=== PATIENT | female | born 1995 | race Caucasian/White ===

== ENCOUNTER 2017-12-21 05:23 | Inpatient (IN) | payer OTHER ==
[2017-12-21] MEDS ORDERED: CEFAZOLIN 2 GM/50 ML (PMX) 50 ML IVPB (05:30)
[2017-12-21] MEDS ORDERED: MISOPROSTOL 200 MCG TAB PR ×2 (05:30→09:00)
[2017-12-21] MEDS ORDERED: CARBOPROST 250 MCG INJ IM ×2 (05:30→09:00)
[2017-12-21] MEDS ORDERED: OXYTOCIN 30 UNITS/LR 500 ML IV ×2 (05:30→09:00)
[2017-12-21] MEDS ORDERED: METHYLERGONOVINE 0.2 MG INJ IM ×2 (05:30→09:00)
[2017-12-21 06:26] LABS: ADD MAN DIFF? NO
[2017-12-21] MEDS: LACTATED RINGER'S 1,000 ML IV (06:26)
[2017-12-21 06:36] LABS: BASOPHILS % 0.3 % (0.0-2.0); EOSINOPHILS # 0.1 10^3/ul (0.0-0.5); EOSINOPHILS % 1.2 % (0.0-7.0); HEMATOCRIT 40.3 % (37.0-47.0); HEMOGLOBIN 13.9 g/dl (12.0-16.0); LYMPHOCYTES # 1.9 10^3/ul (0.8-2.9); LYMPHOCYTES % 27.4 % (18.0-55.0); MEAN CORPUSCULAR HEMOGLOBIN 30.8 pg (29.0-33.0); MEAN CORPUSCULAR HGB CONC 34.5 g/dl (32.0-37.0); MEAN CORPUSCULAR VOLUME 89.2 fl (72.0-104.0); MEAN PLATELET VOLUME 12.3 fl (7.4-10.4); MONOCYTE # 0.6 10^3/ul (0.3-0.9); MONOCYTES % 8.2 % (0.0-13.0); NEUTROPHIL # 4.3 10^3/ul (1.6-7.5); NEUTROPHILS % 62.3 % (30.0-74.0); PLATELET COUNT 137 10^3/UL (140-415); RED BLOOD COUNT 4.52 10^6/ul (4.20-5.40); RED CELL DISTRIBUTION WIDTH 13.1 % (11.5-14.5)
[2017-12-21 06:36] LABS: WHITE BLOOD COUNT 6.8 10^3/ul (4.8-10.8)
[2017-12-21 06:54] LABS: INR 0.93; PARTIAL THROMBOPLASTIN TIME 26.4 Sec (23.0-35.0); PROTIME 12.5 Sec (11.9-14.9)
[2017-12-21] MEDS ORDERED: FENTAnyl 50 MCG/ML VIAL (07:25)
[2017-12-21] MEDS ORDERED: morphine SULFATE/PF (10 MG/10 ML) INJ (07:25)
[2017-12-21 07:26] LABS: HEPATITIS B SURFACE ANTIGEN NEGATIVE (NEGATIVE)
[2017-12-21] MEDS ORDERED: DEXAMETHASONE 4 MG/ML 1 ML INJ (07:26)
[2017-12-21] MEDS ORDERED: ONDANSETRON 4 MG INJ (07:26)
[2017-12-21] MEDS ORDERED: PHENYLephrine (100 MCG/ML) 5ML SYG (07:31)
[2017-12-21] MEDS ORDERED: KETOROLAC 30 MG INJ IV (08:30)
[2017-12-21] MEDS ORDERED: HYDROmorphONE 0.5 MG/0.5 ML SYG IV ×4 (08:30→12:00)
[2017-12-21] MEDS ORDERED: DIPHENHYDRAMINE 50 MG INJ IV (08:30)
[2017-12-21] MEDS ORDERED: NALOXONE (0.4 MG/ML) INJ IV (08:30)
[2017-12-21] MEDS ORDERED: ZOLPIDEM 5 MG TAB PO (08:30)
[2017-12-21] MEDS: SENNA/DOCUSATE NA (8.6MG/50MG) TAB PO ×2 (09:00→21:00)
[2017-12-21] MEDS: OXYTOCIN 30 UNITS/LR 500 ML IV ×2 (09:06→13:35)
[2017-12-21] MEDS: ONDANSETRON 4 MG INJ IV (10:16)
[2017-12-21] MEDS: IBUPROFEN 600 MG TAB PO ×2 (12:00→18:00)
[2017-12-21] MEDS: DIPHENHYDRAMINE 50 MG INJ IM ×2 (12:34→23:49)
[2017-12-21] MEDS: CEFAZOLIN 2 GM/50 ML (PMX) 50 ML IVPB ×3 (16:20→17:00)
[2017-12-21 22:39] LABS: RAPID PLASMA REAGIN NONREACTIVE (NR)
[2017-12-22] MEDS: CEFAZOLIN 2 GM/50 ML (PMX) 50 ML IVPB (00:59)
[2017-12-22] MEDS: LACTATED RINGER'S 1,000 ML IV ×3 (01:00→17:00)
[2017-12-22] MEDS: IBUPROFEN 600 MG TAB PO ×4 (06:00→18:12)
[2017-12-22] MEDS: KETOROLAC 30 MG INJ IV (06:50)
[2017-12-22 07:41] LABS: ADD MAN DIFF? NO
[2017-12-22 07:46] LABS: BASOPHILS % 0.3 % (0.0-2.0); EOSINOPHILS % 0.3 % (0.0-7.0); HEMATOCRIT 33.9 % (37.0-47.0); HEMOGLOBIN 11.8 g/dl (12.0-16.0); LYMPHOCYTES # 1.7 10^3/ul (0.8-2.9); LYMPHOCYTES % 17.6 % (18.0-55.0); MEAN CORPUSCULAR HEMOGLOBIN 31.1 pg (29.0-33.0); MEAN CORPUSCULAR HGB CONC 34.8 g/dl (32.0-37.0); MEAN CORPUSCULAR VOLUME 89.4 fl (72.0-104.0); MEAN PLATELET VOLUME 11.8 fl (7.4-10.4); MONOCYTE # 0.7 10^3/ul (0.3-0.9); MONOCYTES % 7.6 % (0.0-13.0); NEUTROPHIL # 6.9 10^3/ul (1.6-7.5); NEUTROPHILS % 73.7 % (30.0-74.0); PLATELET COUNT 121 10^3/UL (140-415); RED BLOOD COUNT 3.79 10^6/ul (4.20-5.40)
[2017-12-22 07:46] LABS: WHITE BLOOD COUNT 9.4 10^3/ul (4.8-10.8)
[2017-12-22 07:50] LABS: POSITIVE DIFF @See below
[2017-12-22] MEDS: SENNA/DOCUSATE NA (8.6MG/50MG) TAB PO ×2 (09:00→21:34)
[2017-12-22] MEDS: OXYCODONE/ACETAMINOPHEN (5/325) TAB PO (21:34)
[2017-12-23] MEDS: LACTATED RINGER'S 1,000 ML IV (01:00)
[2017-12-23] MEDS: IBUPROFEN 600 MG TAB PO ×5 (05:38→23:56)
[2017-12-23] MEDS: SENNA/DOCUSATE NA (8.6MG/50MG) TAB PO ×2 (09:41→21:30)
[2017-12-23] MEDS: OXYCODONE/ACETAMINOPHEN (5/325) TAB PO (15:20)
[2017-12-24] MEDS: OXYCODONE/ACETAMINOPHEN (5/325) TAB PO (01:13)
[2017-12-24] MEDS: IBUPROFEN 600 MG TAB PO ×2 (06:14→11:30)
[2017-12-24] MEDS: LANOLIN 7 GM TUBE TOP (08:48)
[2017-12-24] MEDS: SENNA/DOCUSATE NA (8.6MG/50MG) TAB PO (08:49)
== END 2017-12-24 16:59 | disposition home or self-care (01) | DRG 788 ==
LOC: L-D 05:23 → PP1 11:26
PROVIDERS: Obstetrics & Gynecology
PROC: 10D00Z1 Extraction of Products of Conception, Low, Open Approach (ICD-10-PCS; principal; 2017-12-21 07:30)
DX: O34.219 Maternal care for unspecified type scar from previous cesarean delivery (principal); Z3A.39 39 weeks gestation of pregnancy; Z37.0 Single live birth
CPT/HCPCS: 82962; 85025; 85610; 85730; 86592; 86850; 86900; 86901; 87340; 99464